=== PATIENT | male | born 1945 | race Caucasian/White ===

== ENCOUNTER 2016-09-11 17:24 | Observation (INO) | payer OTHER, BC ==
[~2016-09-11] VITALS: Ht 177.8 cm; Wt 99.0 kg
[~2016-09-11 17:24] MED LIST: ADULT LOW DOSE81 M1 PO; ALLOPURINOL100 MG PO; AMITRIPTYLINE H10 MG; AMLODIPINE BESYL5 MG PO; ASPIR-LOW81 MG PO; ASPIRIN325 MG PO; BACTROBAN CREAM15 GM TP; BACTROBAN OINTM22 GM PO; BACTROBAN OINTM22 GM TP; BENICAR20 MG PO; CATAPRES0.1 MG PO; CIPRO500 MG PO; CLONIDINE HCL0.1 MG PO; COLCRYS0.6 MG PO; Cipro PO; DECADRON4 MG PO; DESYREL 150 MG150 MG PO; DESYREL100 MG PO; DETROL LA4 MG PO; Ditropan PO; ELAVIL10 MG PO; ELAVIL25 MG PO; FLAGYL500 MG PO; FLONASE16 G1 BOTH NARES; Flagyl PO; HYDROCHLOROTHIA25 MG PO; HYDROCODON-ACE1 EAC7 PO; IMDUR30 MG PO; IMDUR60 MG PO; KLOR-CON M2020 MEQ PO; LANSOPRAZOLE30 MG PO; LASIX20 MG PO; LINZESS145 MCG PO; LINZESS290 MCG PO; LISINOPRIL-HCT1 EACH PO; LOMOTIL TABLET1 EACH PO; LOMOTIL,LONO1 TABLET PO; LUNESTA2 MG PO; Lactinex,Floranex PO; MICROZIDE12.5 M1 PO; MINIPRIN81 MG PO; MOBIC7.5 MG PO; MUPIROCIN15 GM TP; NASONEX17 GM NS; NORCO 5/3251 TABLET PO; NORVASC10 MG PO; PERCOCET 5/31 TABLET PO; PLAVIX75 MG PO; PRAVACHOL40 MG PO; PREVACID30 MG PO; PRINZIDE 10-121 EACH PO; PROTONIX40 MG PO; REQUIP XL12 MG PO; REQUIP0.25 MG PO; ROPINIROLE HC0.25 MG PO; ROPINIROLE PO; TRAMADOL HCL50 MG PO; TRAZODONE HCL150 MG PO; ULORIC40 MG PO; VALIUM5 MG PO; VICODIN 5-3001 EACH PO; VITAMIN D2000 UNIT PO; VYTORIN 10/21 TABLET PO; XYZAL5 MG PO; ZOFRAN ODT4 MG PO; ZYLOPRIM300 MG PO
[2016-09-11 18:09] LABS: HEMATOCRIT 40.3 % (38.0-50.0); MCH 29.4 PG (29.0-34.0); MCHC 32.8 G/DL (30.0-36.0); MCV 89.8 FL (86-99); PLATELET COUNT 186 K/uL (156-360); RBC DIS.WIDTH-CV 13.9 % (11.8-14.6); RBC DIS.WIDTH-SD 45.4 % (39-53); RED BLOOD COUNT 4.49 M/uL (4.00-5.50)
[2016-09-11 18:15] LABS: CHLORIDE 105 mEq/L (99-109); POTASSIUM 4.2 mEq/L (3.7-5.4); SODIUM 140 mEq/L (136-147)
[2016-09-11 18:17] LABS: GLUCOSE 119 mg/dL (70-99)
[2016-09-11 18:18] LABS: ANION GAP 9 MEQ/L (2-14)
[2016-09-11 18:20] LABS: GFR ESTIMATE (CALCULATED) 37 mL/min/
[2016-09-11 18:21] LABS: UREA NITROGEN (BUN) 25 mg/dL (9-23)
[2016-09-11 18:33] LABS: TROP-I INTERPRETATION NEGATIVE; TROPONIN-I < 0.01 ng/mL (0.0-0.30)
[2016-09-11] MEDS ORDERED: REQUIP1 MG PO (21:45)
[2016-09-11] MEDS ORDERED: ELAVIL25 MG PO (21:45)
[2016-09-11] MEDS ORDERED: BACTROBAN OINTM22 GM TP (21:47)
[2016-09-11] MEDS ORDERED: TAMSULOSIN HCL0.4 MG PO (21:48)
[2016-09-11] MEDS ORDERED: QNASL8.7 GM BOTH NARES (21:48)
[2016-09-11] MEDS ORDERED: TRAMADOL HCL50 MG PO (21:48)
[2016-09-11 23:22] LABS: TROP-I INTERPRETATION NEGATIVE; TROPONIN-I < 0.01 ng/mL (0.0-0.30)
[2016-09-12 03:49] VITALS: BP 116/63
[2016-09-12 07:20] LABS: ANION GAP 8 MEQ/L (2-14); CHLORIDE 110 MEQ/L (99-109); GFR ESTIMATE (CALCULATED) 46 mL/min/; GLUCOSE 99 mg/dL (70-99); SAMPLE HEMOLYSIS CHECK 0; SAMPLE ICTERIC CHECK 0; SAMPLE LIPEMIA CHECK 0; SODIUM 142 MEQ/L (136-147); UREA NITROGEN (BUN) 21 mg/dL (9-23)
[2016-09-12 07:25] LABS: TROP-I INTERPRETATION NEGATIVE; TROPONIN-I 0.03 ng/mL (0.0-0.30)
[2016-09-12 07:50] VITALS: BP 145/71
[2016-09-12 11:37] VITALS: BP 147/70
[2016-09-12 11:39] VITALS: BP 109/66
[2016-09-12 11:55] VITALS: BP 147/70
[2016-09-12] MEDS ORDERED: ELAVIL25 MG PO (15:11)
== END 2016-09-12 14:05 | disposition home or self-care (01) ==
LOC: EME 17:24 → EDOF 21:48 → 5WEST 21:48 → EDOF 21:48 → 5WEST 09-12 00:31
PROVIDERS: Family Medicine
DX: R55 Syncope and collapse (principal); N17.9 Acute kidney failure, unspecified; I95.1 Orthostatic hypotension; E86.0 Dehydration; I25.10 Atherosclerotic heart disease of native coronary artery without angina pectoris; I12.9 Hypertensive chronic kidney disease with stage 1 through stage 4 chronic kidney disease, or unspecified chronic kidney disease; N18.3 Chronic kidney disease, stage 3 (moderate); E78.5 Hyperlipidemia, unspecified; I69.354 Hemiplegia and hemiparesis following cerebral infarction affecting left non-dominant side; G89.29 Other chronic pain; K21.9 Gastro-esophageal reflux disease without esophagitis; M10.9 Gout, unspecified; Z79.02 Long term (current) use of antithrombotics/antiplatelets; Z88.0 Allergy status to penicillin; Z88.2 Allergy status to sulfonamides; I25.2 Old myocardial infarction
CPT/HCPCS: 70450; 71020; 78582; 80048; 81003; 84484; 85027; 85379; 85730; 93005; 93970; 99281; 99285; A9540; A9567; G0378; J7030

== ENCOUNTER 2016-09-26 07:12 | Inpatient (IN) | payer OTHER, BC ==
[~2016-09-26] VITALS: Ht 177.8 cm; Wt 112.6 kg
[~2016-09-26 07:12] MED LIST changes: +QNASL8.7 GM BOTH NARES; +REQUIP1 MG PO; +TAMSULOSIN HCL0.4 MG PO
[2016-09-26 07:44] LABS: EOSINOPHIL (%) 2.3 % (0-5); EOSINOPHIL COUNT 0.2 K/uL (0-0.3); HEMATOCRIT 33.4 % (38.0-50.0); IMMATURE GRANULOCYTE (%) 0.3 % (0.0-0.7); INSTRUMENT ABS NEUTROPHIL CT 4.2 K/uL; LYMPHOCYTE COUNT 2.1 K/uL (1.0-2.8); MCH 28.7 PG (29.0-34.0); MCHC 32.6 G/DL (30.0-36.0); MCV 87.9 FL (86-99); MEAN PLAT.VOLUME 10.2 uM^3 (9.0-12.4); MONOCYTE COUNT 0.6 K/uL (0-0.8); NEUTROPHIL (%) 59.3 % (45-76); NEUTROPHIL COUNT 4.2 K/uL (1.8-6.4); PLATELET COUNT 193 K/uL (156-360); RBC DIS.WIDTH-CV 14.4 % (11.8-14.6)
[2016-09-26 08:15] LABS: ANION GAP 8 MEQ/L (2-14); CHLORIDE 103 MEQ/L (99-109); GFR ESTIMATE (CALCULATED) 53 mL/min/; GLUCOSE 99 mg/dL (70-99); POTASSIUM 3.1 MEQ/L (3.7-5.4); SAMPLE HEMOLYSIS CHECK 0; SAMPLE ICTERIC CHECK 0; SAMPLE LIPEMIA CHECK 0; SODIUM 141 MEQ/L (136-147); UREA NITROGEN (BUN) 24 mg/dL (9-23)
[2016-09-26] MEDS ORDERED: LASIX20 MG PO (09:48)
[2016-09-26] MEDS ORDERED: ZESTORETIC 10-1 EAC1 PO (09:49)
[2016-09-26] MEDS ORDERED: CATAPRES0.1 MG PO (09:56)
[2016-09-26 10:48] VITALS: BP 175/75
[2016-09-26 12:22] LABS: HEMATOCRIT 31.2 % (38.0-50.0); MCV 88.9 FL (86-99)
[2016-09-26 15:12] VITALS: BP 140/65
[2016-09-26 18:03] LABS: HEMATOCRIT 32.6 % (38.0-50.0); MCV 87.9 FL (86-99)
[2016-09-26 20:00] VITALS: BP 144/72
[2016-09-26 23:57] VITALS: BP 138/71
[2016-09-27] VITALS (7 sets, daily range): BP systolic 115–183; BP diastolic 56–86
[2016-09-27 01:06] LABS: HEMATOCRIT 33.9 % (38.0-50.0); MCV 87.4 FL (86-99)
[2016-09-27 04:45] LABS: HEMATOCRIT 30.4 % (38.0-50.0); MCV 88.6 FL (86-99)
[2016-09-27 05:16] LABS: CHLORIDE 109 mEq/L (99-109); POTASSIUM 3.5 mEq/L (3.7-5.4); SODIUM 141 mEq/L (136-147)
[2016-09-27 05:18] LABS: GLUCOSE 107 mg/dL (70-99)
[2016-09-27 05:20] LABS: ANION GAP 9 MEQ/L (2-14); TOTAL BILIRUBIN 0.7 mg/dL (0.0-1.0)
[2016-09-27 05:22] LABS: ALKALINE PHOSPHATASE 106 IU/L (3-129); GFR ESTIMATE (CALCULATED) 58 mL/min/
[2016-09-27 05:23] LABS: UREA NITROGEN (BUN) 21 mg/dL (9-23)
[2016-09-27 12:00] LABS: HEMATOCRIT 31.5 % (38.0-50.0); MCV 89.5 FL (86-99)
[2016-09-27 19:19] LABS: HEMATOCRIT 31.5 % (38.0-50.0)
[2016-09-28 00:51] LABS: HEMATOCRIT 29.1 % (38.0-50.0); MCV 88.2 FL (86-99)
[2016-09-28 03:27] VITALS: BP 113/58
[2016-09-28 05:30] LABS: CHLORIDE 109 mEq/L (99-109); POTASSIUM 3.7 mEq/L (3.7-5.4); SODIUM 139 mEq/L (136-147)
[2016-09-28 05:32] LABS: GLUCOSE 108 mg/dL (70-99)
[2016-09-28 05:33] LABS: ANION GAP 8 MEQ/L (2-14)
[2016-09-28 05:35] LABS: GFR ESTIMATE (CALCULATED) > 59 mL/min/
[2016-09-28 05:36] LABS: UREA NITROGEN (BUN) 10 mg/dL (9-23)
[2016-09-28 05:37] LABS: EOSINOPHIL (%) 3.5 % (0-5); EOSINOPHIL COUNT 0.2 K/uL (0-0.3); HEMATOCRIT 28.6 % (38.0-50.0); IMMATURE GRANULOCYTE (%) 0.6 % (0.0-0.7); INSTRUMENT ABS NEUTROPHIL CT 2.8 K/uL; LYMPHOCYTE COUNT 1.6 K/uL (1.0-2.8); MCH 29.4 PG (29.0-34.0); MCHC 33.2 G/DL (30.0-36.0); MCV 88.5 FL (86-99); MEAN PLAT.VOLUME 10.6 uM^3 (9.0-12.4); MONOCYTE (%) 9.1 % (3-12); MONOCYTE COUNT 0.5 K/uL (0-0.8); NEUTROPHIL (%) 54.9 % (45-76); NEUTROPHIL COUNT 2.8 K/uL (1.8-6.4); PLATELET COUNT 160 K/uL (156-360); RBC DIS.WIDTH-CV 14.5 % (11.8-14.6); RBC DIS.WIDTH-SD 46.5 % (39-53); RED BLOOD COUNT 3.23 M/uL (4.00-5.50); WHITE BLOOD COUNT 5.1 K/uL (4.1-10.2)
[2016-09-28 07:13] VITALS: BP 136/63
[2016-09-28 11:10] VITALS: BP 131/68
[2016-09-28 12:29] LABS: HEMATOCRIT 30.1 % (38.0-50.0); MCV 89.9 FL (86-99)
[2016-09-28 15:03] VITALS: BP 142/67
== END 2016-09-28 16:45 | disposition home or self-care (01) | DRG 920 ==
LOC: EME 07:12 → EDOF 09:06 → 5WEST 09:06 → EDOF 09:06 → 5WEST 10:42 → 4SOUTH 09-27 18:50
PROVIDERS: Emergency Medicine; Internal Medicine; Internal Medicine Gastroenterology
DX: K91.840 Postprocedural hemorrhage of a digestive system organ or structure following a digestive system procedure (principal); I69.954 Hemiplegia and hemiparesis following unspecified cerebrovascular disease affecting left non-dominant side; K57.30 Diverticulosis of large intestine without perforation or abscess without bleeding; I25.10 Atherosclerotic heart disease of native coronary artery without angina pectoris; K29.70 Gastritis, unspecified, without bleeding; E78.5 Hyperlipidemia, unspecified; K64.8 Other hemorrhoids; K40.90 Unilateral inguinal hernia, without obstruction or gangrene, not specified as recurrent; I12.9 Hypertensive chronic kidney disease with stage 1 through stage 4 chronic kidney disease, or unspecified chronic kidney disease; K92.1 Melena; I87.8 Other specified disorders of veins; E87.6 Hypokalemia; G47.00 Insomnia, unspecified; N18.3 Chronic kidney disease, stage 3 (moderate); Z90.49 Acquired absence of other specified parts of digestive tract; Z96.652 Presence of left artificial knee joint; Z68.35 Body mass index [BMI] 35.0-35.9, adult; Z86.010 Personal history of colon polyps
CPT/HCPCS: 80048; 80053; 80069; 81003; 85014; 85018; 85025; 86900; 86901; 86920; 99281; 99285; C9113; G0378; J2270

== ENCOUNTER → 2016-10-16 | Outpatient (CLI) | payer OTHER, BC ==
[~2016-10-16] MED LIST changes: +ZESTORETIC 10-1 EAC1 PO
== END | disposition home or self-care (01) ==
LOC: RAD 08:12
DX: R10.31 Right lower quadrant pain (principal); D53.9 Nutritional anemia, unspecified; Z86.010 Personal history of colon polyps
CPT/HCPCS: 74250

== ENCOUNTER 2016-10-23 05:13 | Day surgery (SDC) | payer OTHER, BC ==
[~2016-10-23] VITALS: Ht 177.8 cm; Wt 96.0 kg
[2016-10-23 05:50] VITALS: BP 98/57
[2016-10-23 07:22] VITALS: BP 99/56
[2016-10-23] MEDS ORDERED: NORCO 5/3251 TABLET PO (10:34)
[2016-10-23 11:10] VITALS: BP 105/60
[2016-10-23 11:42] VITALS: BP 136/63
[2016-10-23 12:28] VITALS: BP 111/59
[2016-10-23 13:15] VITALS: BP 122/62
== END 2016-10-23 13:00 | disposition home or self-care (01) ==
LOC: SDC 05:13
PROVIDERS: Surgery
PROC: 0YU50JZ Supplement Right Inguinal Region with Synthetic Substitute, Open Approach (ICD-10-PCS; principal; 2016-10-23)
DX: K40.90 Unilateral inguinal hernia, without obstruction or gangrene, not specified as recurrent (principal); Z87.19 Personal history of other diseases of the digestive system; Z79.02 Long term (current) use of antithrombotics/antiplatelets; I25.10 Atherosclerotic heart disease of native coronary artery without angina pectoris; I25.2 Old myocardial infarction; K21.9 Gastro-esophageal reflux disease without esophagitis; E78.5 Hyperlipidemia, unspecified; Z86.73 Personal history of transient ischemic attack (TIA), and cerebral infarction without residual deficits; I10 Essential (primary) hypertension; M19.90 Unspecified osteoarthritis, unspecified site; Z80.7 Family history of other malignant neoplasms of lymphoid, hematopoietic and related tissues; Z82.49 Family history of ischemic heart disease and other diseases of the circulatory system; Z81.1 Family history of alcohol abuse and dependence; Z88.0 Allergy status to penicillin; Z88.2 Allergy status to sulfonamides; Z88.8 Allergy status to other drugs, medicaments and biological substances
CPT/HCPCS: 82948; C1781; J0131; J0690; J1885; J2250; J2405; J3010; S0020

== ENCOUNTER 2017-03-04 12:28 | Observation (INO) | payer OTHER, BC ==
[~2017-03-04] VITALS: Ht 177.8 cm; Wt 106.6 kg
[~2017-03-04 12:28] MED LIST changes: +LYRICA100 MG PO
[2017-03-04 13:28] LABS: HEMATOCRIT 38.3 % (38.0-50.0); MCH 27.9 PG (29.0-34.0); MCHC 31.6 G/DL (30.0-36.0); MCV 88.5 FL (86-99); MEAN PLAT.VOLUME 9.9 uM^3 (9.0-12.4); PLATELET COUNT 188 K/uL (156-360); RBC DIS.WIDTH-CV 16.2 % (11.8-14.6); RBC DIS.WIDTH-SD 52.4 % (39-53); RED BLOOD COUNT 4.33 M/uL (4.00-5.50); WHITE BLOOD COUNT 6.6 K/uL (4.1-10.2)
[2017-03-04 13:40] LABS: CHLORIDE 107 mEq/L (99-109); POTASSIUM 4.2 mEq/L (3.7-5.4); SODIUM 142 mEq/L (136-147)
[2017-03-04 13:42] LABS: GLUCOSE 120 mg/dL (70-99)
[2017-03-04 13:43] LABS: ANION GAP 7 MEQ/L (2-14)
[2017-03-04 13:46] LABS: GFR ESTIMATE (CALCULATED) 42 mL/min/; UREA NITROGEN (BUN) 21 mg/dL (9-23)
[2017-03-04 13:50] LABS: TROP-I INTERPRETATION NEGATIVE; TROPONIN-I < 0.01 ng/mL (0.0-0.30)
[2017-03-04] MEDS ORDERED: ROPINIROLE HCL1 MG PO (15:19)
[2017-03-04 17:57] VITALS: BP 192/92
[2017-03-04 19:16] VITALS: BP 137/74
[2017-03-04 19:56] VITALS: BP 142/73
[2017-03-04 20:15] LABS: TROP-I INTERPRETATION NEGATIVE; TROPONIN-I < 0.01 ng/mL (0.0-0.30)
[2017-03-05 00:03] VITALS: BP 130/64
[2017-03-05 02:11] LABS: TROP-I INTERPRETATION NEGATIVE; TROPONIN-I < 0.01 ng/mL (0.0-0.30)
[2017-03-05 03:57] VITALS: BP 107/58
[2017-03-05 11:18] VITALS: BP 113/55
== END 2017-03-05 14:15 | disposition home or self-care (01) ==
LOC: EME 12:28 → EDOF 16:09 → 5WEST 16:09 → EDOF 16:09 → ENRESERV 16:12 → EDOF 17:01 → 5WEST 17:33
PROVIDERS: Internal Medicine
DX: R07.9 Chest pain, unspecified (principal); I12.9 Hypertensive chronic kidney disease with stage 1 through stage 4 chronic kidney disease, or unspecified chronic kidney disease; N18.3 Chronic kidney disease, stage 3 (moderate); I25.10 Atherosclerotic heart disease of native coronary artery without angina pectoris; I25.2 Old myocardial infarction; Z86.73 Personal history of transient ischemic attack (TIA), and cerebral infarction without residual deficits; E78.5 Hyperlipidemia, unspecified; D50.9 Iron deficiency anemia, unspecified; Z90.49 Acquired absence of other specified parts of digestive tract; Z96.652 Presence of left artificial knee joint; Z82.49 Family history of ischemic heart disease and other diseases of the circulatory system; Z80.6 Family history of leukemia; Z88.0 Allergy status to penicillin; Z88.2 Allergy status to sulfonamides; Z88.6 Allergy status to analgesic agent; Z88.8 Allergy status to other drugs, medicaments and biological substances
CPT/HCPCS: 71020; 80048; 84484; 85027; 93005; 99281; 99285; G0378; J1644; J2270; J3010

== ENCOUNTER 2017-05-15 20:36 | Observation (INO) | payer OTHER, BC ==
[~2017-05-15] VITALS: Ht 177.8 cm; Wt 107.9 kg
[~2017-05-15 20:36] MED LIST changes: +ROPINIROLE HCL1 MG PO
[2017-05-15 21:03] LABS: HEMATOCRIT 43.3 % (38.0-50.0); MCH 29.6 PG (29.0-34.0); MCHC 33.3 G/DL (30.0-36.0); MCV 89.1 FL (86-99); MEAN PLAT.VOLUME 9.4 uM^3 (9.0-12.4); PLATELET COUNT 174 K/uL (156-360); RBC DIS.WIDTH-CV 16.2 % (11.8-14.6); RBC DIS.WIDTH-SD 53.9 % (39-53); RED BLOOD COUNT 4.86 M/uL (4.00-5.50); WHITE BLOOD COUNT 9.2 K/uL (4.1-10.2)
[2017-05-15 21:12] LABS: CHLORIDE 107 mEq/L (99-109); SODIUM 143 mEq/L (136-147)
[2017-05-15 21:13] LABS: GLUCOSE 104 mg/dL (70-99)
[2017-05-15 21:15] LABS: ANION GAP 8 MEQ/L (2-14)
[2017-05-15 21:17] LABS: GFR ESTIMATE (CALCULATED) 37 mL/min/ (58.99-99999)
[2017-05-15 21:18] LABS: UREA NITROGEN (BUN) 20 mg/dL (9-23)
[2017-05-15 21:23] LABS: TROP-I INTERPRETATION NEGATIVE; TROPONIN-I < 0.01 ng/mL (0.0-0.30)
[2017-05-15] MEDS ORDERED: CLONIDINE HCL0.1 MG PO (23:06)
[2017-05-15] MEDS ORDERED: ELAVIL25 MG PO (23:08)
[2017-05-15] MEDS ORDERED: TRAMADOL HCL50 MG PO (23:12)
[2017-05-15] MEDS ORDERED: MUPIROCIN15 GM TP (23:12)
[2017-05-15] MEDS ORDERED: GABAPENTIN300 MG PO (23:13)
[2017-05-16 01:50] VITALS: BP 175/80
[2017-05-16 03:31] LABS: TROP-I INTERPRETATION NEGATIVE; TROPONIN-I < 0.01 ng/mL (0.0-0.30)
[2017-05-16 08:36] LABS: FASTING STATUS NONFASTING
[2017-05-16 08:43] LABS: HEMATOCRIT 41.9 % (38.0-50.0); MCH 29.6 PG (29.0-34.0); MCHC 32.9 G/DL (30.0-36.0); MCV 89.9 FL (86-99); MEAN PLAT.VOLUME 9.8 uM^3 (9.0-12.4); PLATELET COUNT 175 K/uL (156-360); RBC DIS.WIDTH-CV 16.2 % (11.8-14.6); RBC DIS.WIDTH-SD 53.4 % (39-53); RED BLOOD COUNT 4.66 M/uL (4.00-5.50); WHITE BLOOD COUNT 7.3 K/uL (4.1-10.2)
[2017-05-16 08:52] LABS: Estimated Average Glucose 126 mg/dL (70-123)
[2017-05-16 09:02] LABS: HDL CHOLESTEROL 46 MG/DL (Desirable>=40); LDL CHOLESTEROL 56 mg/dL (Desirable<100); NON-HDL CHOLESTEROL 65 mg/dL (Desirable<160); TOTAL CHOLESTEROL 111 mg/dL (Desirable<200); TRIGLYCERIDES 45 MG/DL (Normal: <150)
[2017-05-16 09:07] LABS: TROP-I INTERPRETATION NEGATIVE; TROPONIN-I < 0.01 ng/mL (0.0-0.30)
[2017-05-16 16:12] VITALS: BP 145/79
[2017-05-16 19:16] VITALS: BP 128/71
[2017-05-16 23:58] VITALS: BP 126/60
[2017-05-17 05:18] LABS: HEMATOCRIT 41.8 % (38.0-50.0); MCH 28.7 PG (29.0-34.0); MCHC 32.5 G/DL (30.0-36.0); MCV 88.2 FL (86-99); MEAN PLAT.VOLUME 9.8 uM^3 (9.0-12.4); PLATELET COUNT 182 K/uL (156-360); RBC DIS.WIDTH-CV 15.8 % (11.8-14.6); RBC DIS.WIDTH-SD 51.4 % (39-53); RED BLOOD COUNT 4.74 M/uL (4.00-5.50); WHITE BLOOD COUNT 6.2 K/uL (4.1-10.2)
[2017-05-17 05:26] VITALS: BP 114/65
[2017-05-17 06:00] LABS: ANION GAP 7 MEQ/L (2-14); CHLORIDE 104 MEQ/L (99-109); GFR ESTIMATE (CALCULATED) 49 mL/min/ (58.99-99999); GLUCOSE 92 mg/dL (70-99); POTASSIUM 4.2 MEQ/L (3.7-5.4); SAMPLE HEMOLYSIS CHECK 0; SAMPLE ICTERIC CHECK 0; SAMPLE LIPEMIA CHECK 0; SODIUM 139 MEQ/L (136-147); UREA NITROGEN (BUN) 24 mg/dL (9-23)
[2017-05-17 06:49] VITALS: BP 162/73
[2017-05-17 11:17] VITALS: BP 114/67
[2017-05-17] MEDS ORDERED: AMLODIPINE BESYL5 MG PO (15:14)
== END 2017-05-17 15:55 | disposition home or self-care (01) ==
LOC: EME 20:36 → EDOF 23:02 → 5WEST 23:02 → EDOF 23:02 → ENRESERV 23:20 → 5WEST 05-16 01:43
PROVIDERS: Emergency Medicine; Hospitalist
DX: R07.9 Chest pain, unspecified (principal); I12.9 Hypertensive chronic kidney disease with stage 1 through stage 4 chronic kidney disease, or unspecified chronic kidney disease; N18.9 Chronic kidney disease, unspecified; E78.5 Hyperlipidemia, unspecified; Z86.73 Personal history of transient ischemic attack (TIA), and cerebral infarction without residual deficits; I25.10 Atherosclerotic heart disease of native coronary artery without angina pectoris; G43.109 Migraine with aura, not intractable, without status migrainosus; J44.9 Chronic obstructive pulmonary disease, unspecified; D64.9 Anemia, unspecified; E03.9 Hypothyroidism, unspecified; R20.0 Anesthesia of skin; M79.602 Pain in left arm; I44.0 Atrioventricular block, first degree; I25.2 Old myocardial infarction; Z82.49 Family history of ischemic heart disease and other diseases of the circulatory system; Z96.652 Presence of left artificial knee joint; Z80.7 Family history of other malignant neoplasms of lymphoid, hematopoietic and related tissues; Z82.0 Family history of epilepsy and other diseases of the nervous system; Z79.82 Long term (current) use of aspirin; Z79.02 Long term (current) use of antithrombotics/antiplatelets; Z88.0 Allergy status to penicillin; Z88.2 Allergy status to sulfonamides; Z88.5 Allergy status to narcotic agent; Z88.8 Allergy status to other drugs, medicaments and biological substances
CPT/HCPCS: 70450; 70551; 71020; 71250; 74176; 78582; 80048; 80061; 83036; 84484; 85027; 85379; 93005; 93880; 99281; 99285; A9540; A9567; G0378; J1650